=== PATIENT | male | born 1980 | race African-American/Black ===

== ENCOUNTER 2017-06-26 20:26 | Emergency (ER) | payer SELFPAY ==
[~2017-06-26] VITALS: Ht 188 cm; Wt 130.9 kg
[~2017-06-26 20:26] MED LIST: ACYC-1 PO; CORTI10A RIGHT EAR; MEDR4PAK3 PO
[2017-06-26 20:27] VITALS: BP 139/71; PULSE 98; RESP 18; TEMP 102.8; O2SAT 97
[2017-06-26 20:49] VITALS: BP 134/71; PULSE 95; RESP 18; TEMP 101; O2SAT 95
[2017-06-26] MEDS ORDERED: ACETAMINOPHEN 325 MG TAB PO ONE (21:00)
[2017-06-26] MEDS ORDERED: SODIUM CHLOR 0.9% 1000 ML INJ 1,000 ML IV ONE (21:00)
[2017-06-26] MEDS ORDERED: SODIUM CHLORIDE 0.9% FLUSH 10 ML FLUSH IVF PRN (21:00)
[2017-06-26] MEDS ORDERED: IBUPROFEN 800 MG TAB PO ONE (21:00)
[2017-06-26 21:14] LABS: BASOPHIL % 0.4 % (0.0-2.0); EOSINOPHIL # 0.1 TH/MM3 (0-0.4); EOSINOPHIL % 0.5 % (0.0-4.0); HEMATOCRIT 40.1 % (39.0-51.0); HEMOGLOBIN 13.6 GM/DL (13.0-17.0); LYMPH % 15.8 % (9.0-44.0); MEAN CELL VOLUME 82.1 FL (80.0-100.0); MEAN CORPUSCULAR HEMOGLOBIN 27.9 PG (27.0-34.0); MEAN PLATELET VOLUME 7.8 FL (7.0-11.0); MONO % 11.4 % (0.0-8.0); MONOCYTE # 1.4 TH/MM3 (0-0.9); NEUT % 71.9 % (16.0-70.0); PLATELET COUNT 165 TH/MM3 (150-450); RED BLOOD COUNT 4.88 MIL/MM3 (4.50-5.90); WHITE BLOOD COUNT 12.5 TH/MM3 (4.0-11.0)
[2017-06-26 21:27] LABS: ALBUMIN 3.6 GM/DL (3.4-5.0); AST (GOT) 19 U/L (15-37); BLOOD UREA NITROGEN 15 MG/DL (7-18); CALCIUM 8.7 MG/DL (8.5-10.1); CHLORIDE 101 MEQ/L (98-107); CREATININE 1.24 MG/DL (0.60-1.30); GLOMERULAR FILTRATION RATE 79 ML/MIN (>89); GLUCOSE,RANDOM 97 MG/DL (74-106); SODIUM (NA) 135 MEQ/L (136-145)
--- NOTE | 2017-06-26 21:27 | PD ---
HPI Chief Complaint: Respiratory Symptoms Time Seen by Provider: 20:46 Travel History International Travel<30 days: No Contact w/Intl Traveler<30days: No Traveled to known affect area: No History of Present Illness HPI 36 year-old male presents to the emergency department with 2 days of not feeling well and noted this evening to have fever. Patient states he feels like his lymph nodes are swollen around his neck. Patient's had some mild discomfort to his left ear. Patient did not get the flu vaccine. Patient also felt short of breath prior to arrival but has had no productive cough. No nausea no vomiting no abdominal pain no diarrhea no dysuria frequency urgency flank pain skin rash joint pain or swelling. Patient states that he slept from 3 PM to 7 PM and upon awakening noted that he had fever and did not feel well so decided to come to the emergency room. Patient did have a fever last evening of 10 1F. 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[place], gastric bypass; no tobacco use; nursing notes reviewed Cancer: No Cardiovascular Problems: No Diabetes: No Endocrine: No Genitourinary: No Hepatitis: No Hiatal Hernia: Yes Immune Disorder: No Musculoskeletal: No Neurologic: No Psychiatric: No Reproductive: No Respiratory: No Thyroid Disease: No Tetanus Vaccination: Unknown Influenza Vaccination: No Past Surgical History Abdominal Surgery: Yes AICD: No Cardiac Surgery: No Ear Surgery: No Endocrine Surgery: No Eye Surgery: No Genitourinary Surgery: No Joint Replacement: No Oral Surgery: No Pacemaker: No Thoracic Surgery: No Other Surgery: Yes Social History Alcohol Use: No Tobacco Use: No Substance Use: No Allergies-Medications (Allergen,Severity, Reaction): Coded Allergies: shellfish derived (Unverified Allergy, Unknown, 02/18/17) Reported Meds & Prescriptions Reported Meds & Active Scripts Active Cortisporin Otic Solution (Neomycin/Polymyxin/Hydrocortisone) 10 Ml Soln 4 Drop RIGHT EAR QID Medrol Dosepak (Methylprednisolone) 4 Mg Anish 4 Mg PO DIRECTED TAKE DIRECTED Reported Zovirax 800 Mg Tab (Acyclovir) 800 Mg Tab 800 Mg PO 5 TIMES A DAY Review of Systems Except as stated in HPI: all other systems reviewed are Neg General / Constitutional: Positive: Fever HENT: Positive: Congestion, Earache, Other (lymphadenopathy, mild), No: Headaches, Neck Pain Cardiovascular: No: Chest Pain or Discomfort Respiratory: Positive: Shortness of Breath Gastrointestinal: No: Vomiting, Diarrhea Genitourinary: No: Flank Pain Musculoskeletal: Positive: Myalgias, Arthralgias Skin: No Rash Neurologic: No: Change in Mentation Physical Exam Narrative GENERAL: Well-developed well-nourished male in no acute distress no respiratory distress SKIN: Warm and dry. HEAD: Normocephalic. EYES: No scleral icterus. No injection or drainage. ENT: Mucous membranes moist airway is patent. Tympanic membranes fluid behind the left ear but no redness dullness. NECK: Supple, trachea midline. No JVD or lymphadenopathy. CARDIOVASCULAR: Regular rate and rhythm without murmurs, gallops, or rubs. RESPIRATORY: Breath sounds equal bilaterally. No accessory muscle use. GASTROINTESTINAL: Abdomen soft, non-tender, nondistended. MUSCULOSKELETAL: No cyanosis, or edema. BACK: Nontender without obvious deformity. No CVA tenderness. Data Data Last Documented VS Vital Signs Date Time Temp Pulse Resp B/P (MAP) Pulse Ox O2 Delivery O2 Flow Rate FiO2 06/27/17 00:31 98.0 59 18 117/52 (73) 100 Room Air Orders Orders Electrocardiogram (06/26/17 20:46) Complete Blood Count With Diff (06/26/17 20:46) Comprehensive Metabolic Panel (06/26/17 20:46) Monoscreen (06/26/17 20:46) Group A Rapid Strep Screen (06/26/17 20:46) Influenzae A/B Antigen (06/26/17 20:46) Chest, Single Ap (06/26/17 20:46) Iv Access Insert/Monitor (06/26/17 20:46) Oximetry (06/26/17 20:46) Acetaminophen (Tylenol) (06/26/17 21:00) Ibuprofen (Motrin) (06/26/17 21:00) Sodium Chloride 0.9% Flush (Ns Flush) (06/26/17 21:00) Sodium Chlor 0.9% 1000 Ml Inj (Ns 1000 M (06/26/17 21:00) Blood Culture (06/26/17 20:46) Strep Culture (Group A) (06/26/17 21:28) Labs Laboratory Tests Test 06/26/17 20:50 06/26/17 21:25 White Blood Count 12.5 TH/MM3 Red Blood Count 4.88 MIL/MM3 Hemoglobin 13.6 GM/DL Hematocrit 40.1 % Mean Corpuscular Volume 82.1 FL Mean Corpuscular Hemoglobin 27.9 PG Mean Corpuscular Hemoglobin Concent 34.0 % Red Cell Distribution Width 14.0 % Platelet Count 165 TH/MM3 Mean Platelet Volume 7.8 FL Neutrophils (%) (Auto) 71.9 % Lymphocytes (%) (Auto) 15.8 % Monocytes (%) (Auto) 11.4 % Eosinophils (%) (Auto) 0.5 % Basophils (%) (Auto) 0.4 % Neutrophils # (Auto) 9.0 TH/MM3 Lymphocytes # (Auto) 2.0 TH/MM3 Monocytes # (Auto) 1.4 TH/MM3 Eosinophils # (Auto) 0.1 TH/MM3 Basophils # (Auto) 0.0 TH/MM3 CBC Comment DIFF FINAL Differential Comment Blood Urea Nitrogen 15 MG/DL Creatinine 1.24 MG/DL Random Glucose 97 MG/DL Total Protein 8.9 GM/DL Albumin 3.6 GM/DL Calcium Level 8.7 MG/DL Alkaline Phosphatase 72 U/L Aspartate Amino Transf (AST/SGOT) 19 U/L Alanine Aminotransferase (ALT/SGPT) 23 U/L Total Bilirubin 0.8 MG/DL Sodium Level 135 MEQ/L Potassium Level 4.1 MEQ/L Chloride Level 101 MEQ/L Carbon Dioxide Level 26.0 MEQ/L Anion Gap 8 MEQ/L Estimat Glomerular Filtration Rate 79 ML/MIN Monoscreen NEG MDM Medical Decision Making Medical Screen Exam Complete: Yes Emergency Medical Condition: Yes Medical Record Reviewed: Yes Interpretation(s) EKG: Sinus rhythm rate [address]-T changes Differential Diagnosis Shortness of breath, fever, viral syndrome, pneumonia, influenza Narrative Course Patient placed on monitor EKG performed shows no acute injury pattern patient administered acetaminophen and ibuprofen IV access obtained IV fluids administered chest x-ray ordered Chest x-ray reveals no lobar infiltrate lab and eyes were grossly normal range except for mild leukocytosis Patient clinically improved flu test and rapid strep were negative as well as Monospot negative. Patient states he feels well after being defervesced with ibuprofen and acetaminophen. Patient has been hydrated with normal saline is stable for outpatient management and close follow-up with his primary care provider. Diagnosis Primary Impression: URI (upper respiratory infection) Additional Impression: Viral syndrome Referrals: Primary Care Physician call for appointment Patient Instructions: General Instructions Additional Instructions: Monitor temperature every 4 hours with thermometer Take acetaminophen/Tylenol every 4 hours for fever 100.4F or greater Take ibuprofen/Advil/Motrin 800 mg as often as every 8 hours for fever 100.4F or greater or for pain associated with inflammation Increase fluid hydration Follow-up with primary care provider No work 2 days or as long as fever Return to emergency for free concerns or change in condition Disposition: 01 DISCHARGE HOME Condition: Stable Lissette Contreras MD Jun 26, 2017 21:27
[2017-06-26 21:28] LABS: ALT (GPT) 23 U/L (12-78)
[2017-06-26 21:30] LABS: ALKALINE PHOSPHATASE 72 U/L (45-117); TOTAL BILIRUBIN ADULT 0.8 MG/DL (0.2-1.0); TOTAL PROTEIN 8.9 GM/DL (6.4-8.2)
--- NOTE | 2017-06-26 21:34 | RADRPT ---
EXAM DATE/TIME: 06/26/2017 21:04 [facility] COMPARISON: No previous studies available for comparison. INDICATIONS : Chest pain and shortness of breath. MEDICAL HISTORY : None. SURGICAL HISTORY : None. ENCOUNTER: Initial ACUITY: 1 day PAIN SCORE: 2/10 LOCATION: Bilateral chest FINDINGS: A single view of the chest demonstrates the lungs to be symmetrically aerated without evidence of mas s, infiltrate or effusion. The cardiomediastinal contours are unremarkable. Osseous structures are intact. CONCLUSION: The lungs are clear. Edson Alonzo MD on June 26, 2017 at 21:31 Board Certified Radiologist. This report was verified electronically.
[2017-06-26 22:00] LABS: MONOSCREEN NEG (NEG)
[2017-06-27 00:31] VITALS: BP 117/52; PULSE 59; RESP 18; TEMP 98; O2SAT 100
--- NOTE | 2017-06-27 23:03 | EKG ---
Date Performed: 06/26/2017 Time Performed: 21:21:08 PTAGE: 36 years EKG: Sinus rhythm NONSPECIFIC ST ELEVATION BORDERLINE ECG NO PREVIOUS TRACING DOCTOR: Ion Sanchez Interpretating Date/Time 06/27/2017 23:02:18
== END 2017-06-27 01:37 | disposition home or self-care (01) ==
LOC: NEPC 20:26
DX: J06.9 Acute upper respiratory infection, unspecified (principal); Z98.84 Bariatric surgery status
CPT/HCPCS: 71010; 80053; 85025; 86308; 87040; 87081; 87804; 87880; 93005; 96360; 99285; J7030